=== PATIENT | male | born 2000 | race Caucasian/White ===

== ENCOUNTER 2023-04-28 21:30 | Emergency (ER) | payer OTHER ==
[~2023-04-28] VITALS: Ht 177.8 cm; Wt 67.6 kg
[2023-04-28] MEDS ORDERED: IV NS 0.9% 1,000 ML BAG IV ONE (22:30)
[2023-04-28 22:40] LABS: BASOPHILS % (AUTO) 0.3 % (0.0-2.0); EOSINOPHILS % (AUTO) 0.1 % (0.0-6.0); HEMATOCRIT 43 % (39-51); HEMOGLOBIN 14.9 g/dL (13.5-17.5); LYMPHOCYTES # (AUTO) 0.7 K/uL (0.8-4.8); LYMPHOCYTES % (AUTO) 24.3 % (20.0-44.0); MEAN CORPUSCULAR HEMOGLOBIN 28 PG (26.0-33.0); MEAN CORPUSCULAR HGB CONC 35 g/dl (31.0-36.0); MEAN CORPUSCULAR VOLUME 82 fL (80-96); MONOCYTES # (AUTO) 0.3 K/uL (0.1-1.30); MONOCYTES % (AUTO) 10.8 % (2.0-12.0); NEUTROPHILS # (AUTO) 1.9 K/uL (1.8-8.9); NEUTROPHILS % (AUTO) 64.5 % (43.0-81.0); PLATELET COUNT (AUTO) 111 K/uL (150-450); RED BLOOD CELL COUNT(AUTO) 5.27 MIL/uL (4.5-6.0); RED CELL DISTRIBUTION WIDTH 14.2 % (11.5-15.0); WHITE BLOOD COUNT (AUTO) 2.9 K/uL (4.3-11.0)
[2023-04-28 23:05] LABS: INR 1.08 (0.91-1.10); PARTIAL THROMBOPLASTIN TIME 32.2 SEC (24.3-34.3); PROTHROMBIN TIME 11.4 SECS (9.2-11.1)
[2023-04-28 23:08] LABS: CALCIUM, SERUM 9.1 mg/dL (8.5-10.1); CARBON DIOXIDE 28 mmol/L (21-32); CHLORIDE 98 mmol/L (98-107); CREATININE 1.1 mg/dL (0.6-1.3); GLUCOSE 95 mg/dL (74-106); POTASSIUM 3.6 mmol/L (3.5-5.1); SODIUM SERUM 132 mmol/L (136-145); UREA NITROGEN, BLOOD 13 mg/dL (7-18)
[2023-04-28 23:30] LABS: ALANINE AMINOTRANSFERASE 36 U/L (12-78); ALBUMIN 3.8 g/dL (3.4-5.0); ALKALINE PHOSPHATASE 88 U/L (46-116); ASPARTATE AMINOTRANSFERASE 34 U/L (15-37); BILIRUBIN,DIRECT 0.1 mg/dL (0.0-0.2); BILIRUBIN,TOTAL 0.4 mg/dL (0.2-1.0); TOTAL PROTEIN, SERUM 7.2 g/dL (6.4-8.2)
[2023-04-28 23:53] VITALS: BP 121/70; TEMP 98.2; O2SAT 99
== END 2023-04-28 23:53 | disposition home or self-care (01) ==
LOC: ER 21:34
DX: R55 Syncope and collapse (principal)
CPT/HCPCS: 99285; 96360; 70450; 71045; 93005; 72020; 85025; 80048; 80076; 36415 ×2; 84484; 85730; 86850; 82962; J7030